=== PATIENT | male | born 1955 | race Caucasian/White ===

== ENCOUNTER 2018-03-23 10:34 | Observation (INO) | payer OTHER ==
[~2018-03-23] VITALS: Ht 177.8 cm; Wt 125.5 kg
[~2018-03-23 10:34] MED LIST: ALEVE220 MG PO; ASPIR-LOW81 MG PO; CENTRUM SILVER1 EAC3 PO; CRESTOR10 MG PO; Centrum Silver,Certa PO; DICLOFENAC POTA50 MG PO; DIOVAN160 MG PO; DIOVAN80 MG PO; FENOFIBRATE160 M1 PO; MULTIVITAMIN1 EAC2 PO; OMEPRAZOLE20 M2 PO; PRAVASTATIN SOD20 MG PO; PRILOSEC20 MG PO; TOPROL XL100 MG PO; TOPROL XL200 MG PO; TRAMADOL HCL50 MG PO; TRICOR145 MG PO; Vitamin D PO
[2018-03-23 11:27] LABS: HEMATOCRIT 40.3 % (38.0-50.0); HEMOGLOBIN 14.7 G/DL (12.5-16.6); MCH 30.1 PG (29.0-34.0); MCHC 36.5 G/DL (30.0-36.0); MCV 82.6 FL (86-99); PLATELET COUNT 187 K/uL (156-360); RBC DIS.WIDTH-CV 12.9 % (11.8-14.6); RBC DIS.WIDTH-SD 38.6 % (39-53); RED BLOOD COUNT 4.88 M/uL (4.00-5.50)
[2018-03-23 11:35] LABS: CHLORIDE 108 mEq/L (99-109); POTASSIUM 4.7 mEq/L (3.7-5.4); SODIUM 139 mEq/L (136-147)
[2018-03-23 11:37] LABS: GLUCOSE 108 mg/dL (70-99)
[2018-03-23 11:41] LABS: CREATININE 1.1 mg/dL (0.6-1.3); GFR ESTIMATE (CALCULATED) > 59 mL/min/ (58.99-99999)
[2018-03-23 11:42] LABS: UREA NITROGEN (BUN) 25 mg/dL (9-23)
[2018-03-23 11:49] LABS: TROP-I INTERPRETATION NEGATIVE; TROPONIN-I < 0.01 ng/mL (0.0-0.30)
[2018-03-23 14:05] LABS: D-DIMER ELISA < 150.00 ng/mLDDU (<230)
[2018-03-23 14:16] LABS: ERTH.SED.RATE 6 MM/HR (0-20)
[2018-03-23] MEDS ORDERED: PRAVASTATIN SOD40 MG PO (14:22)
[2018-03-23] MEDS ORDERED: BISOPROLOL-HCT1 EAC2 PO (14:24)
[2018-03-23] MEDS ORDERED: FENOFIBRATE160 M1 PO (14:24)
[2018-03-23] MEDS ORDERED: FISH OIL 1,2001 EAC4 PO (14:25)
[2018-03-23 14:41] LABS: MAGNESIUM 2.2 mg/dL (1.3-2.7)
[2018-03-23 14:48] LABS: CREATINE KINASE 400 IU/L (1-294); TOTAL CK 400 IU/L (1-294)
[2018-03-23 14:54] LABS: CK-MB 5.6 ng/mL (0.0-4.9); CKMB RELATIVE INDEX 1.4 (0.0-3.9)
[2018-03-23 15:34] VITALS: BP 131/95
[2018-03-23 15:47] LABS: HDL CHOLESTEROL 28 MG/DL (Desirable>=40); LDL CHOLESTEROL 99 mg/dL (Desirable<100); NON-HDL CHOLESTEROL 142 mg/dL (Desirable<160); TOTAL CHOLESTEROL 170 mg/dL (Desirable<200); TRIGLYCERIDES 217 MG/DL (Normal: <150)
[2018-03-23 15:53] VITALS: BP 161/77; BP 178/90
[2018-03-23 15:54] VITALS: BP 190/101
[2018-03-23 16:13] LABS: THYROTROPIN (TSH) 0.78 MIU/L (0.4-5.5)
[2018-03-23 16:20] LABS: C-REACTIVE PROTEIN < 1.0 MG/L (0-10)
[2018-03-23 20:20] LABS: TROP-I INTERPRETATION NEGATIVE; TROPONIN-I < 0.01 ng/mL (0.0-0.30)
[2018-03-23 21:00] VITALS: BP 141/72
[2018-03-24 04:58] LABS: HEMATOCRIT 39.4 % (38.0-50.0); HEMOGLOBIN 14.3 G/DL (12.5-16.6); MCH 30.4 PG (29.0-34.0); MCHC 36.3 G/DL (30.0-36.0); MCV 83.8 FL (86-99); PLATELET COUNT 172 K/uL (156-360); RBC DIS.WIDTH-CV 13.1 % (11.8-14.6); RBC DIS.WIDTH-SD 39.9 % (39-53); WHITE BLOOD COUNT 4.7 K/uL (4.1-10.2)
[2018-03-24 05:09] LABS: ALBUMIN 4.1 g/dL (3.2-4.8)
[2018-03-24 05:10] LABS: CHLORIDE 108 mEq/L (99-109); POTASSIUM 4.7 mEq/L (3.7-5.4); SODIUM 140 mEq/L (136-147)
[2018-03-24 05:12] LABS: GLUCOSE 112 mg/dL (70-99); TOTAL PROTEIN 6.7 g/dL (6.4-8.3)
[2018-03-24 05:14] LABS: TOTAL BILIRUBIN 0.5 mg/dL (0.0-1.0)
[2018-03-24 05:15] LABS: ALKALINE PHOSPHATASE 43 IU/L (3-129)
[2018-03-24 05:16] LABS: GFR ESTIMATE (CALCULATED) > 59 mL/min/ (58.99-99999)
[2018-03-24 05:17] LABS: AST (GOT) 43 IU/L (2-34); UREA NITROGEN (BUN) 15 mg/dL (9-23)
[2018-03-24 05:18] LABS: ALT (GPT) 52 IU/L (3-49)
[2018-03-24 05:21] LABS: TROP-I INTERPRETATION NEGATIVE; TROPONIN-I 0.01 ng/mL (0.0-0.30)
[2018-03-24 10:23] LABS: HEMOGLOBIN A1c (GLYCOHEMOGLOB) 5.9 % (Below 5.7)
[2018-03-24 12:00] VITALS: BP 130/60
== END 2018-03-24 12:53 | disposition home or self-care (01) ==
LOC: EME 10:34 → EDOF 12:50 → 4SOUTH 12:50 → ENRESERV 12:51 → 4SOUTH 15:28 → ENPENDDIS 03-24 11:33 → 4SOUTH 03-24 12:53
PROVIDERS: Internal Medicine
DX: R07.2 Precordial pain (principal); I25.10 Atherosclerotic heart disease of native coronary artery without angina pectoris; I10 Essential (primary) hypertension; Z95.5 Presence of coronary angioplasty implant and graft; Z95.1 Presence of aortocoronary bypass graft; Z79.82 Long term (current) use of aspirin; E78.5 Hyperlipidemia, unspecified; Z86.73 Personal history of transient ischemic attack (TIA), and cerebral infarction without residual deficits; I25.2 Old myocardial infarction; E66.01 Morbid (severe) obesity due to excess calories; K21.9 Gastro-esophageal reflux disease without esophagitis; E78.1 Pure hyperglyceridemia
CPT/HCPCS: 71046; 71275; 80048; 80053; 80061; 82550 91; 82553; 83036; 83735; 83880; 84443; 84484; 85027; 85379; 85651; 86140; 93005; 93306; 99281; 99285; C9113; G0378; J1650; J7030